=== PATIENT | male | born 1990 | race African-American/Black ===

== ENCOUNTER 2019-10-14 07:48 | Inpatient (IN) | payer SELFPAY ==
[2019-10-14 10:12] LABS: Lactic Acid 0.8 mmol/L (0.5-2.2)
[2019-10-14] MEDS ORDERED: Iopamidol 370 76% 100 ML VIAL ONE (10:13)
--- NOTE | 2019-10-14 11:36 | ULT ---
BILATERAL TESTICULAR ULTRASOUND WITH CA SCALE AND COLOR FLOW AND SPECTRAL DOPPLER IMAGING: HISTORY: Testicular pain and abscess. FINDINGS: The right testis measures 4.2 x 2.5 x 3 cm and the left testis measures 4.4 x 2.2 x 3.1 cm. No focal mass or microlithiasis is seen. There are a few scattered tiny calcifications in the testes. Symme tric blood flow is seen to both testes and epididymi. The right epididymides measures 0.7 x 1 x 1 cm and the left epididymides measures 1.2 x 0.7 x 0.8 cm. No hydroceles are seen. There is a complex area in the scrotum between the 2 testes measuring 4.6 x 1.2 x 1.1 cm with increas ed flow vascularity. IMPRESSION: Findings are suspicious for scrotal abscess. POS: [facility]
--- NOTE | 2019-10-14 11:59 | CT ---
CT ABDOMEN AND PELVIS WITH IV CONTRAST: Date: 10/14/2019 INDICATION: History of abdominal pain with history of inguinal abscess. COMPARISON: Scrotal ultrasound dated 10/14/2019 at 0931 hours. FINDINGS: Lung bases are clear. No focal hepatic lesion is evident. The gallbladder, pancreas, adrenal glands, and spleen appear within normal limits. The kidneys are normal appearing. No free fluid or enlarged lymph nodes are evident. The small and large bowel appear of normal caliber. The small bowel is normal caliber. No free fluid is evident. The bladder, rectum, and perirectal soft tissues are unremarkable appearing . There is skin thickening with inflammatory reticulation involving the subcutaneous fat of the upper m ons pubis. There is a 1.4 cm area of subcutaneous phlegmon involving the left aspect of the mons pubi s on image 99 of series 2. There are enlarged lymph nodes of the inguinal region. One of the largest seen within the left inguinal region is measuring 1.2 cm. There is scrotal thickening and cellulitis with a suspected 1.7 cm abscess involving the posterior mi dline scrotal sac on image 120, series 2. This likely corresponds to the abnormality seen on patient' s prior scrotal ultrasound. No acute osseous abnormality is evident. IMPRESSION: 1. Scrotal cellulitis with an intratesticular scrotal abscess. 2. Inflammatory change involving the anterior mons pubis consistent with changes of cellulitis. Smal l area of localized phlegmon is seen involving the subcutaneous tissues of the left aspect of the mon s pubis on image 99 of series 2 measuring 1.4 cm. 3. Enlarged lymph nodes of the inguinal regions are likely reactive. 4. No acute abnormality is seen within the abdomen or pelvis. POS: [facility]
[2019-10-14] MEDS ORDERED: Lidocaine 1% w/Epinephrine 1:100K 20 ML VIAL ONE (12:33)
[2019-10-14] MEDS ORDERED: Calcium Carbonate 500 MG ChewTAB PO PRN (13:51)
[2019-10-14] MEDS ORDERED: Ondansetron PF 4 MG/2 ML Vial IVP PRN (13:51)
[2019-10-14] MEDS ORDERED: Bisacodyl 5 MG TAB PO PRN (13:51)
[2019-10-14] MEDS ORDERED: HYDROcodone/Acetaminophen 5/325 mg Tablet PO PRN (13:51)
[2019-10-14] MEDS ORDERED: Ondansetron ODT 4 MG TAB PO PRN (13:51)
[2019-10-14] MEDS ORDERED: Acetaminophen 325 MG TAB PO PRN (13:51)
[2019-10-14] MEDS ORDERED: Morphine 2 MG/ML SYRINGE SLOW IVP PRN (13:56)
[2019-10-14 14:28] VITALS: BMI 30.2
[2019-10-14] MEDS ORDERED: Polyethylene Glycol 3350 17 GM Packet PO PRN (15:11)
[2019-10-14] MEDS: Ketorolac Tromethamine 30 MG/ML VIAL IVP SCH ×2 (15:39→23:37)
[2019-10-14] MEDS: Sodium Chloride 0.9% 1,000 ML IV SCH ×2 (15:41→20:40)
[2019-10-14] MEDS ORDERED: Meropenem 1 GM in Sodium Chloride 0.9% 100 ML IVPB SCH (16:00)
--- NOTE | 2019-10-14 16:45 | CON ---
DATE OF CONSULTATION: 10/14/2019 REASON FOR CONSULTATION: Left groin and scrotal abscess. HISTORY OF PRESENT ILLNESS: The patient is a 29-year-old male who presented to the [facility] Emergency Department with history of a left inguinal abscess as well as some discomfort in the scrotum. The patient also had a small area over the right inguinal region as well. He states that he has had some itching and had open sores on his skin secondary to scratching. This has developed over the past 2 to 3 days. The patient presented to [facility] Emergency Department at which point, the small area in the left groin was I and D'd and cultures were obtained. The patient had an elevated lactate and was transferred per sepsis protocol to the emergency department in [place]. Currently, the patient reports decreased amount of pain. He still continues to report a small area on his right groin and then an area of pain at the base of the scrotum. He denies any prior similar episodes. No fevers. He has no other complaints. REVIEW OF SYSTEMS: Full 12-point review of systems was performed and is negative other than that mentioned in HPI. PAST MEDICAL HISTORY: None. PAST SURGICAL HISTORY: Cyst removal from left arm. SOCIAL HISTORY: The patient currently lives at home. He does not work. He reports daily drug use including marijuana, occasional Ecstasy. He smokes a half a pack of cigarettes per day. FAMILY HISTORY: Noncontributory. ALLERGIES: NO KNOWN DRUG ALLERGIES. PHYSICAL EXAMINATION: VITAL SIGNS: Temperature 131/88, pulse 92, respirations 18, temperature 98.8, and oxygen saturation 98% on room air. GENERAL: He is alert and oriented x3 in no apparent distress. HEENT: Normocephalic and atraumatic. NECK: Supple. No masses or lymphadenopathy. CARDIOVASCULAR: Regular rate and rhythm. PULMONARY: Breathing unlabored. ABDOMEN: Soft, nontender/nondistended. No masses or organomegaly. No suprapubic tenderness to palpation. No CVA tenderness. GENITOURINARY: Normal penis without concerning lesion. Testes and epididymides palpably normal bilaterally. In the center of the scrotum, there is an area of induration deep. There is no erythema or fluctuance around this area. Over the left groin, there is a partially draining left inguinal abscess. On the right side in the inguinal fold, there is a small abscess as well. No crepitus. LABORATORY DATA: Lactate at outside facility was 2.7, currently is 0.8. White blood cell count 19.2, hemoglobin 13.9, hematocrit 43.9, and platelets 293. Sodium 139, potassium 3.8, chloride 104, bicarbonate 22, BUN 11, and creatinine 1.15. RADIOLOGY DATA: CT of the abdomen and pelvis demonstrates inflammatory areas over the left groin consistent with abscess. Enlarged inguinal lymph nodes. There is also scrotal cellulitis with a possible intratesticular scrotal abscess. These images were reviewed. ASSESSMENT: A 29-year-old male with scrotal/inguinal abscess. PLAN: The patient was evaluated in the emergency department. Under sterile conditions, the left inguinal abscess as well as the right inguinal abscess had incision and drainage performed. This was done by first prepping and draping in the usual sterile fashion. 10 mL of 1% lidocaine with epinephrine was used to perform a local anesthetic block around the areas of the abscess. An 11 blade scalpel was used to make a cruciate incision over the already draining left inguinal abscess. There was purulent material deep. Hemostat was used to lyse any loculations. A very small incision was made over the right abscess, which drained purulent fluid as well. This was very superficial and small. On the left side, this was copiously irrigated with a mixture of saline and Betadine. It was packed with iodoform gauze. There was no packing necessary to be performed on the right side. The patient will be admitted overnight. He will remain on broad-spectrum antibiotics. The culture is pending. Repeat cultures were taken from the incision and drainage performed today in the emergency department. Regarding the area in the midline posterior scrotum, we will monitor the patient's physical exam. Clinically, he has already improved. There does not appear to be a drainable abscess in that location. He can have a regular diet now, n.p.o. after midnight. He will be evaluated tomorrow morning. If his condition improves, he can likely be discharged at that time. Wound Care consult will be placed. Job ID: [id number]
--- NOTE | 2019-10-14 16:54 | HP ---
PRIMARY CARE: [facility]. CHIEF COMPLAINT: Scrotal swelling of 3 days' duration. HISTORY OF PRESENT ILLNESS: The patient is a 29-year-old male who presented to the emergency room with above complaints. Over the last 3 days, the patient noticed gradual worsening of swelling of scrotum. It started with a boil in the pubic area that gradually got worse. He has significant pain around this area. He also noticed warmth and significant tenderness. There was no drainage reported. He also had mild itching over the area. No fever or chills reported. In the emergency room at [place], his initial vital signs showed temperature 99.5, pulse rate of 105, blood pressure of 138/76, respirations of 16, and O2 saturation of 100% on room air. A testicular ultrasound was consistent with scrotal abscess. He was transferred to this facility after administration of tetanus shot, cefepime, vancomycin, and IV fluids. PAST MEDICAL HISTORY: Reviewed with the patient, hemorrhoids. PAST SURGICAL HISTORY: Cyst removal from the left arm. ALLERGIES: THE PATIENT DENIES ANY DRUG ALLERGIES. CURRENT HOME MEDICATIONS: Reviewed with the patient and none. SOCIAL HISTORY: The patient abuses cannabis. He smokes cigarettes on a daily basis up to half pack a day. He currently lives with a roommate. FAMILY HISTORY: Positive for diabetes and hypertension. REVIEW OF SYSTEMS: All other review of systems were reviewed and were found negative. PHYSICAL EXAMINATION: VITAL SIGNS: As discussed above. GENERAL: A 29-year-old male, in no apparent distress. Pain controlled at this time. HEENT: Head, atraumatic and normocephalic. Sclerae anicteric. Moist mucous membranes. No oral lesion. NECK: Supple. No JVD. No carotid bruit. LUNGS: Clear to auscultation bilaterally. No wheezing, rales, or rhonchi. HEART: S1 and S2 present. Regular rate and rhythm. ABDOMEN: Soft and nontender. Bowel sounds present. GENITOURINARY: The patient is circumcised. There is significant scrotal and pubic area swelling along with induration and warmth and tenderness. SKIN: As discussed above. LYMPH NODES: No palpable lymph nodes in the neck. PERIPHERAL VASCULAR: Radial pulses palpable bilaterally. MUSCULOSKELETAL: No joint swelling or tenderness. LABORATORY FINDINGS: CBC showed WBC 19.2 with hemoglobin 13.9, hematocrit 43.9, and platelets of 293. Chemistry showed sodium 139, potassium 3.8, chloride 104, bicarb 22, BUN 11, and creatinine 1.1. Lactic acid was 2.9. Repeat lactic acid was 0.8. LFTs in normal range. Testicular ultrasound as discussed above. CT scan of the abdomen and pelvis with IV contrast showed scrotal cellulitis with intratesticular scrotal abscess with enlarged lymph node. Lactic acid on admission was 2.9. IMPRESSION: 1. Sepsis secondary to scrotal cellulitis with abscess. 2. Tobacco dependence. 3. Cannabis abuse. 4. Lactic acidosis secondary to sepsis. 5. Mild chronic anemia, suspected due to nutritional deficiency. 6. History of hemorrhoids. PLAN: The patient underwent incision and drainage at the bedside in the emergency room by Dr. Ventura. He will be kept n.p.o. past midnight for possible intervention. We will start him on vancomycin and meropenem. Monitor vancomycin level. We will start him on IV fluids. Pain control. The patient understands the above plan of care. The patient will require 2 to 3 days for stabilization. Job ID: [id number]
[2019-10-14] MEDS: MEROPENEM 1 GM/50 ML 1 GM in Premix Bag 1 BAG IVPB SCH ×2 (16:56→23:37)
[2019-10-14] MEDS: Senokot S 8.6-50 MG TAB PO SCH (20:59)
--- NOTE | 2019-10-15 01:57 | PRG ---
DATE OF SERVICE: 10/15/2019 SUBJECTIVE: The patient overall is feeling better. He has less pain. He has been afebrile. No complaints. OBJECTIVE: VITAL SIGNS: T-max 99.5, pulse 67 to 77, respirations 18, blood pressure 129/71, and oxygen saturation 100% on room air. GENERAL: He is awake and alert, no apparent distress. CARDIOVASCULAR: Regular rate and rhythm. PULMONARY: Breathing unlabored. ABDOMEN: Soft, nontender/nondistended. No masses or organomegaly. No suprapubic tenderness to palpation. No CVA tenderness. GENITOURINARY: Normal penis without concerning lesion. Left inguinal abscess incisions clean with iodoform gauze packing in place. Right inguinal abscess incision also clean with minimal drainage. No purulence. No surrounding fluctuance or erythema. There is no superficial scrotal abscess present deep within the midposterior scrotum. There is an area of induration without any fluctuance. This is mildly tender to palpation, slightly less in size compared to yesterday's exam. EXTREMITIES: Warm and well perfused. No edema. NEUROLOGIC: No focal deficits. ASSESSMENT: A 29-year-old male with inguinal and scrotal abscess, status post incision and drainage. PLAN: Based on the patient's physical exam, I do not believe intervention on the area of the scrotum is necessary at this time. His exam can continue to be followed once his labs are back. If his white blood cell count is normal and he continues to improve clinically, he could potentially be discharged home tomorrow. If his exam worsens, he may require intervention. Job ID: [id number]
[2019-10-15] MEDS: Sodium Chloride 0.9% 1,000 ML IV SCH ×3 (03:27→19:59)
[2019-10-15] MEDS: Ketorolac Tromethamine 30 MG/ML VIAL IVP SCH ×2 (06:49→15:41)
[2019-10-15 10:42] LABS: #Basophils 0.1 thou/uL (0.0-0.2); #Eosinphils 0.3 thou/uL (0.0-0.7); #Lymphocytes 1.9 thou/uL (1.20-3.40); #Monocytes 1.4 thou/uL (0.11-0.59); #Neutrophils 6.8 thou/uL (1.40-6.50); %Basophils 0.6 % (0.0-1.0); %Eosinophils 2.6 % (0.0-10.0); %Lymphocytes 18.2 % (21.0-51.0); %Monocytes 13.4 % (0.0-10.0); %Neutrophils 65.1 % (42.0-75.0); Mean Corpuscular HGB CONC 31.4 g/dL (32.0-36.0); Mean Corpuscular Hemoglobin 28.1 pg (27.0-31.0); Mean Corpuscular Volume 89.3 fL (78.0-98.0); Mean Platelet Volume 7.5 fL (7.4-10.4); Platelet Count 258 thou/uL (130-400); RBC Distribution Width 11.6 % (11.5-14.5); Red Blood Cell (RBC) Count 4.65 mill/uL (4.70-6.10); White Blood Cell (WBC) Count 10.5 thou/uL (4.8-10.8)
[2019-10-15 10:58] LABS: Vancomycin, Trough 13.4 ug/mL
[2019-10-15 11:02] LABS: ALT (SGPT) 49 U/L (8-55); AST (SGOT) 39 U/L (5-34); Albumin 3.8 g/dL (3.5-5.0); Alkaline Phosphatase 71 U/L (40-110); Anion Gap 13 mmol/L (10-20); BUN (Urea Nitrogen) 6 mg/dL (8.9-20.6); Bilirubin, Total 0.4 mg/dL (0.2-1.2); Calc. Creatinine Clearance 217 mL/min (70-130); Carbon Dioxide 21 mmol/L (22-29); Chloride 107 mmol/L (98-107); Estimated GFR-MDRD Greater than 90; Glucose 96 mg/dL (70-105); Protein, Total 6.8 g/dL (6.0-8.3); Sodium 137 mmol/L (136-145)
[2019-10-15] MEDS: Senokot S 8.6-50 MG TAB PO SCH ×2 (11:15→20:26)
[2019-10-15] MEDS: Saccharomyces boulardii 250 MG CAP PO SCH (11:15)
[2019-10-15] MEDS: MEROPENEM 1 GM/50 ML 1 GM in Premix Bag 1 BAG IVPB SCH (19:16)
[2019-10-15] MEDS ORDERED: Ibuprofen 200 MG TAB PO PRN (19:41)
--- NOTE | 2019-10-15 19:42 | PDOC.HOSPP ---
- Subjective Encounter Date: 10/15/19 Encounter Time: 16:00 Subjective: Patient seen and examined for scrotal cellulitis. No fever. Scrotal swelling/ pain improving. No other complaints. No overnight events - Objective Vital Signs & Weight: Weight Admit Weight 241 lb 14.4 oz Weight 241 lb 14.4 oz I&O: 10/14/19 10/15/19 10/16/19 06:59 06:59 06:59 Intake Total 1290 Output Total 650 Balance 640 Result Diagrams: 10/15/19 10:31 10/15/19 10:31 Additional Labs: Microbiology 10/14/19 13:04 Groin - Pending Bacterial Culture - Preliminary Methicillin resistant S.aureus Laboratory Tests 10/15/19 10:31 Vancomycin Trough 13.4 Radiology Reviewed by me: Yes (CT - reviewed) Hospitalist ROS - Review of Systems Respiratory: denies: cough, dry, shortness of breath, hemoptysis, SOB with excertion, pleuritic pain, sputum, wheezing, other Cardiovascular: denies: chest pain, palpitations, orthopnea, paroxysmal noc. dyspnea, edema, light headedness, other - Medication Medications: Active Medications Generic Name Dose Route Start Last Admin Trade Name Freq PRN Reason Stop Dose Admin Vancomycin HCl 2 gm/ Sodium 500 mls @ 500 mls/hr 10/15/19 09:00 10/15/19 16: 17 Chloride IVPB 500 mls 0100,0900,1700 LIBBY Administration Ketorolac Tromethamine 15 mg 10/14/19 15:15 10/15/19 15:41 Toradol IVP 10/16/19 15:16 Not Given Q8H [facility] Saccharomyces Boulardii 250 mg 10/15/19 09:00 10/15/19 11:15 Florastor PO Not Given DAILY [facility] Senna/Docusate Sodium 2 tab 10/14/19 21:00 10/15/19 11:15 Senokot S PO Not Given BID LIBBY - Exam General Appearance: NAD Heart: RRR, no rubs Respiratory: no wheezes, no ronchi Gastrointestinal: non-tender, normal bowel sounds Gastrointestinal - other findings: improving scrotal swelling with minimal tenderness Extremities: no cyanosis Neurological: no new deficit Hosp A/P - Plan DVT proph w/SCDs 1. Sepsis secondary to MRSA scrotal cellulitis/abscess. 2. Tobacco dependence. 3. Cannabis abuse. 4. Lactic acidosis secondary to sepsis. 5. Mild chronic anemia, suspected due to nutritional deficiency. 6. History of hemorrhoids. PLAN: Cont IV Vancomycin DC Meropenem DC IVF Pain control Urology input appreciated Wound care AM labs Monitor Vancomycin level The patient underwent incision and drainage at the bedside in the emergency room by Dr. Ventura. He will be kept n.p.o. past midnight for possible intervention. We will start him on vancomycin and meropenem. Monitor vancomycin level. We will start him on IV fluids. Pain control. The patient understands the above plan of care. The patient will require 2 to 3 days for stabilization.
[2019-10-16 08:29] LABS: Hemoglobin 12.7 g/dL (14.0-18.0); Mean Corpuscular HGB CONC 31.8 g/dL (32.0-36.0); Mean Corpuscular Hemoglobin 28.2 pg (27.0-31.0); Mean Corpuscular Volume 88.7 fL (78.0-98.0); Mean Platelet Volume 7.5 fL (7.4-10.4); Platelet Count 276 thou/uL (130-400); RBC Distribution Width 11.5 % (11.5-14.5); White Blood Cell (WBC) Count 12.6 thou/uL (4.8-10.8)
[2019-10-16] MEDS: Senokot S 8.6-50 MG TAB PO SCH ×2 (08:42→20:41)
[2019-10-16] MEDS: Saccharomyces boulardii 250 MG CAP PO SCH (08:43)
[2019-10-16 08:59] LABS: Band 1 % (5-11); Eosinophils 3 % (0-10); Lymphocytes 19 % (21-51); MDiff Complete? YES; Monocytes 17 % (0-10); Neutrophil 60 % (42-75); RBC Morphology Normal
[2019-10-16] MEDS ORDERED: Ketorolac Tromethamine 30 MG/ML VIAL IVP SCH (09:15)
--- NOTE | 2019-10-16 10:44 | PRG ---
DATE OF SERVICE: 10/16/2019 SUBJECTIVE: Overall, the patient is feeling better. He continues to report some mild scrotal pain. He is afebrile. White blood cell count was down yesterday. He has no complaints. OBJECTIVE: VITAL SIGNS: T-max 99, current temperature 98.4, pulse 61, respirations 18, oxygen saturation 100% on room air, blood pressure 112/72. GENERAL: He is awake, alert, and oriented x3, in no apparent distress. HEENT: Normocephalic and atraumatic. CARDIOVASCULAR: Regular rate and rhythm. PULMONARY: Breathing unlabored. ABDOMEN: Soft, nontender/nondistended. No masses or organomegaly. No suprapubic tenderness to palpation. No CVA tenderness. GENITOURINARY: Normal penis without concerning lesion. Left inguinal wound with packing in place. No surrounding erythema/induration. No purulent drainage. Small area of induration in the posterior midline scrotum. There is no skin reaction. The induration is deep. No abscess. No fluctuance. LABORATORY DATA: White blood cell count 12.6, yesterday was 10.5. Left groin culture growing MRSA, sensitive to clindamycin, gentamicin, linezolid, rifampin, tetracycline, vancomycin, and doxycycline. ASSESSMENT: A 29-year-old male with bilateral groin abscess, possible scrotal abscess. PLAN: Overall, the patient has improved clinically. His white blood cell count did increase this morning on exam, I do not see any drainable abscess present. Given the increase in his white blood cell count, may proceed with a repeat scrotal ultrasound. There is possibly a deep abscess there from prior imaging. This was very small and his exam has improved. Overall, he can be given a diet today and be made n.p.o. after midnight tonight. Job ID: [id number]
--- NOTE | 2019-10-16 12:28 | ULT ---
EXAM: US Testicular W Doppler PROVIDED CLINICAL HISTORY: Testicular pain. Possible deep scrotal abscess. COMPARISON: 10/14/2019 FINDINGS: The right testicle measures 3.7 cm x 2.8 cm x 2.4 cm the left testicle measuring 4 cm x 2 cm x 2.3 cm . There are scattered punctate echogenic foci again seen in each testicle most suggestive of testicular microlithiasis. No testicular mass is visualized. Doppler evaluation of each testicle with spectral analysis and color flow evaluation demonstrates arterial flow in each testicle. Each epididymis demonstrates a normal sonographic appearance bilaterally. There is a hypoechoic slightly heterogeneous irregular masslike structure in the inferior aspect of t he scrotum in the region of patient's pain/palpable abnormality. This structure does not demonstrate flow on color flow evaluation. There does appear to be surrounding increased flow on colo r flow evaluation. This structure measures 3 cm x 1.6 cm x 1.6 cm. This was present on the prior exam with previous measurements of 4.6 cm x 1.2 cm x 1.1 cm.. Adjacent to this collection and greater anteriorly there is a area of diminished echogenicity which could be related to phlegmon and inflammatory process. There is no evidence of a hydrocele. IMPRESSION: 1. Heterogeneous extratesticular masslike structure in the inferior aspect of the scrotum with greate st dimension of 3 cm.. No color flow is seen within this structure. Increased vascular flow is seen adjacent to this lobulated heterogeneous structure. Findings again could be related to infection and potentially secondary to small abscess collection. 2. Testicular microlithiasis. No testicular mass is seen.
[2019-10-16] MEDS ORDERED: Ketorolac Tromethamine 30 MG/ML VIAL IVP PRN (15:15)
--- NOTE | 2019-10-16 18:35 | DIS ---
DATE OF ADMISSION: 10/14/2019 DATE OF DISCHARGE: 10/16/2019 DISCHARGE DISPOSITION: Home. FOLLOWUP: 1. Follow up with primary care physician at [facility]. 2. Follow up with Urology, Dr. Dread Ventura in 1 week. DISCHARGE MEDICATIONS: Zyvox 600 mg b.i.d.. ALLERGIES: NO KNOWN DRUG ALLERGIES. THE PATIENT WAS SEEN AND EXAMINED ON THE DAY OF DISCHARGE. DENIES ANY NEW COMPLAINTS. NO NEW FEVER OR CHILLS. THE PATIENT WAS EDUCATED BY WOUND CARE NURSE. VITAL SIGNS ON THE DAY OF DISCHARGE SHOWED TEMPERATURE OF 98.4, PULSE OF 61, RESPIRATIONS OF 18, AND BLOOD PRESSURE OF 112/72, WITH O2 SATURATION 100% ON ROOM AIR. BRIEF HOSPITAL COURSE: The patient is a 29-year-old male, who presented to the emergency room with scrotal swelling of 3 days duration. His workup was consistent with sepsis secondary to scrotal cellulitis with abscess. He underwent incision and drainage by Dr. Ventura, Urology. His microbiology was consistent with MRSA sensitive to Zyvox and vancomycin. He has been cleared by Urology for discharge. He is comfortable with wound care dressing. He was placed on vancomycin during this hospital course. FINAL DIAGNOSIS: 1. Sepsis due to methicillin-resistant Staphylococcus aureus scrotal cellulitis with abscess. 2. Tobacco dependence. 3. Cannabis abuse. 4. Lactic acidosis secondary to sepsis. 5. Mild chronic anemia suspected due to nutritional deficiency. 6. History of hemorrhoids. 7. Acute pain secondary to sepsis due to methicillin-resistant Staphylococcus aureus scrotal cellulitis with abscess. The patient understands the above plan of care. Job ID: [id number]
[2019-10-16 19:31] VITALS: BP 134/79; TEMP 99
== END 2019-10-16 21:01 | disposition home or self-care (01) | DRG 872 ==
LOC: ERS 07:48 → T4-B 11:55
PROVIDERS: ADMIT Internal Medicine; ATTEND Internal Medicine
DX: A41.02 Sepsis due to Methicillin resistant Staphylococcus aureus (principal); E87.2 Acidosis; N49.2 Inflammatory disorders of scrotum; F17.210 Nicotine dependence, cigarettes, uncomplicated; F12.10 Cannabis abuse, uncomplicated; D53.9 Nutritional anemia, unspecified; R65.20 Severe sepsis without septic shock
CPT/HCPCS: 36415; 74177; 76870; 80053; 80202; 83605; 85025; 87070; 87077; 87186; 87205; 93976; J1885; J2185; J3370; J7030; Q9967

== ENCOUNTER 2023-01-31 22:02 | Emergency (ER) | payer SELFPAY ==
[2023-01-31 23:02] LABS: #Monocytes 1.9 thou/uL (0.11-0.59); #Neutrophils 14.3 thou/uL (1.40-6.50); %Basophils 0.2 % (0.0-1.0); %Lymphocytes 3.8 % (21.0-51.0); %Neutrophils 84.5 % (42.0-75.0); Hematocrit 36.3 % (42.0-52.0); Hemoglobin 11.9 g/dL (14.0-18.0); Mean Corpuscular HGB CONC 32.8 g/dL (32.0-36.0); Mean Corpuscular Hemoglobin 27.9 pg (27.0-31.0); Mean Corpuscular Volume 85.2 fl (78.0-98.0); Mean Platelet Volume 9.4 fL (7.4-10.4); Platelet Count 271 10x3/uL (130-400); RBC Distribution Width 13.1 % (11.5-14.5); Red Blood Cell (RBC) Count 4.26 mill/uL (4.70-6.10)
[2023-01-31 23:23] LABS: Acetaminophen Less than 10 mcg/mL (10.0-30.0); Alcohol Less than 10.0 mg/dL (Less than 10); Salicylate Less than 8.0 mg/dL (15.0-30.0)
[2023-01-31 23:25] LABS: ALT (SGPT) 10 U/L (8-55); AST (SGOT) 14 U/L (5-34); Alkaline Phosphatase 47 U/L (40-110); Anion Gap 12 mmol/L (10-20); BUN (Urea Nitrogen) 11 mg/dL (8.9-20.6); Bilirubin, Total 0.6 mg/dL (0.2-1.2); CK (CPK) 292 U/L (30-200); Calc. Creatinine Clearance 0 mL/min (70-130); Calcium 8.7 mg/dL (7.8-10.44); Carbon Dioxide 19 mmol/L (22-29); Chloride 111 mmol/L (98-107); Estimated GFR 59; Globulin 2.4 g/dL (2.4-3.5); Glucose 82 mg/dL (70-105); Potassium 3.2 mmol/L (3.5-5.1); Protein, Total 6.4 g/dL (6.0-8.3); Sodium 139 mmol/L (136-145)
[2023-02-01 01:04] LABS: Bilirubin Negative (Negative); Blood, Urine Trace (Negative); CAUTI Indications for Culture Dysuria,urgency,freq; Clarity Clear (Clear); Glucose, Urine (Dipstick) Normal (Negative); Ketone, Urine 10 mg/dL (Negative); Leukocyte Negative Leu/uL (Negative); Nitrite Negative (Negative); Protein, Urine (Dipstick) 30 mg/dL (Neg-Trace); RBC/HPF None Seen HPF (0-3); Specific Gravity, Urine 1.014 (1.002-1.036); Squamous Epithelial None Seen HPF (0-3); Urobilinogen Normal mg/dL (Less than 2)
[2023-02-01 01:05] LABS: Bacteria/HPF 1+ HPF (None Seen); Urine Culture Reflex No No
[2023-02-01 01:10] LABS: Amphetamine Detected (NotDetected); Barbiturates Screen Not Detected (NotDetected); Benzodiazepine Screen Not Detected (NotDetected); Cocaine Metabolite Screen Not Detected (NotDetected); Methadone Not Detected (NotDetected); Methamphetamine Detected (NotDetected); Opiate Screen Not Detected (NotDetected); Oxycodone Screen Not Detected (NotDetected); Phencyclidine (PCP) Not Detected (NotDetected); THC/Cannabinoid Screen Detected (NotDetected); Tricyclic Screen Not Detected (NotDetected)
[2023-02-01 02:07] LABS: Lactic Acid 1.5 mmol/L (0.5-2.2)
[2023-02-01 02:37] LABS: Anion Gap 15 mmol/L (10-20); BUN (Urea Nitrogen) 9 mg/dL (8.9-20.6); Calc. Creatinine Clearance 0 mL/min (70-130); Calcium 8.6 mg/dL (7.8-10.44); Carbon Dioxide 18 mmol/L (22-29); Chloride 109 mmol/L (98-107); Estimated GFR 78; Glucose 85 mg/dL (70-105); Potassium 3.5 mmol/L (3.5-5.1); Sodium 138 mmol/L (136-145)
== END 2023-02-01 04:13 | disposition home or self-care (01) ==
LOC: ERS 22:02
DX: F19.10 Other psychoactive substance abuse, uncomplicated (principal); R45.851 Suicidal ideations; E86.0 Dehydration; F17.290 Nicotine dependence, other tobacco product, uncomplicated
CPT/HCPCS: 36415; 70450; 71045; 80048; 80053; 80306; 80307; 81001; 82550; 83605; 84484; 85025; 93005; 96360; 96361